=== PATIENT | male | born 2000 | race Caucasian/White ===

== ENCOUNTER 2021-10-05 20:44 | Emergency (ER) | payer OTHER, SELFPAY ==
[2021-10-05 20:51] VITALS: BP 121/78; PULSE 79; RESP 16; TEMP 36.1; O2SAT 100; BMI 28.1
--- NOTE | 2021-10-05 21:05 | ED.URI ---
HPI - URI/Sore Throat General Date Seen: 10/05/21 Chief Complaint: Sore Throat Stated Complaint: Sore Throat/Cough Time Seen by Provider: 10/05/21 20:46 Source: patient Mode of arrival: ambulatory Limitations: no limitations History of Present Illness HPI Narrative: Patient is seen Clint student from [place], who presents here with a 2-3 day history of sore throat, he has been using some [id number] medications tonight, and tonight had a retching episode where he was coughing, retch, and then retched up a little bit of blood, this caused him some discomfort, and worry and he presented here to the ER to be seen. He is otherwise eating and drinking normally, reports to me that he has no fevers, little bit of runny nose, congestion, and maybe a little bit of a cough. Denies any chest pain any shortness of breath, abdominal discomfort, pain dysuria frequency or diarrhea or change in his bowel habits. Denies a rash, is currently on no other medications, no history of hospitalizations or surgeries. MD elicited complaint: sore throat Onset (ago): day(s) Severity: mild Able to tolerate fluids by mouth: Yes Exacerbating factors: swallowing Associated symptoms: denies other symptoms, cough and vomiting Treatments prior to arrival: acetaminophen and cold medicine Related Data Home Medications Medication Instructions Recorded Confirmed No Known Home Medications 10/05/21 10/05/21 Allergies Allergy/AdvReac Type Severity Reaction Status Date / Time No Known Drug Allergies Allergy Verified 10/05/21 20:55 Review of Systems Status of ROS: Reports: 10 or more systems reviewed and unremarkable except as noted in History and below [facility] Medical History (Updated 10/05/21 @ 22:28 by Alejandro Kiran MD) No significant past medical history Surgical History (Updated 10/05/21 @ 21:47 by Mitch Yen RN) No significant past surgical history Social History Smoking Status: Current every day smoker What tobacco products do you use: cigarettes Do you use any of these nicotine containing products: None Second hand tobacco smoke exposure: Yes How often do you have a drink containing alcohol: never How often do you have six or more drinks on one occasion: Never AUDIT-C Alcohol total score: 0 Non-prescribed substance use: denies use Exam Const: Vital Signs, click to edit/add: Vital Signs - 24 hr 10/05/21 20:51 Temperature 97.0 F L Pulse Rate [Right Pulse Oximeter] 79 Respiratory Rate 16 Blood Pressure [Ri ght Upper Arm] 121/78 Pulse Oximetry 100 Oxygen Delivery Me thod Room Air Documenting provider has reviewed patient's vital signs: yes Common normals: no apparent distress, average body habitus, oriented x3, no limitations, healthy appearing, alert and well nourished HENMT: Common normals: normocephalic, head/scalp atraumatic, hearing grossly normal bilaterally, external ears normal, EAC's normal, TM's normal bilaterally, external nose normal, nasal mucous membranes and turbinates normal and moist oral mucous membranes Head and scalp: normal to inspection, normocephalic and atraumatic Face and sinus: normal facial exam Nose: external nose normal and nasal mucous membranes and turbinates normal External ear: external ears normal External auditory canal: EAC's normal Tympanic membrane: TM's normal bilaterally Throat: uvula midline and posterior oropharynx abnormal erythema Other: Right tonsil is bigger than the left, but there is no deviation of the uvula, with no uvular swelling noted. There is redness however, no petechiae noted, I do not see any acute active bleeding, or any exudates. Eye: Common normals: PERRL, EOMs intact bilaterally and no scleral icterus Pupil: PERRL Neck & C-Spine: Common normals: full ROM, no lymphadenopathy, supple, no meningeal signs and no JVD Lymph: Lymphatic: no lymphadenopathy noted Chest: Common normals: inspection of chest normal Resp: Common normals: normal respiratory effort, no retractions, no use of accessory muscles, clear to auscultation bilaterally and percussion normal Effort & inspection: able to speak in complete sentences Auscultation: clear to auscultation bilaterally Percussion: percussion normal Cardio: Common normals: no JVD, regular rate, regular rhythm, S1 normal heart sound, S2 normal heart sound, no gallops, no clicks, no murmurs, no rub and peripheral pulses 2+ throughout Rate: regular rate Rhythm: regular rhythm Heart sounds: S1 normal and S2 normal Peripheral pulses: pulses 2+ throughout GI: Common normals: Normal to inspection, nondistended, normoactive bowel sounds present, soft to palpation, non-tender, no hepatosplenomegaly and no masses Palpation: soft and no hepatosplenomegaly : Common normals: no CVA tenderness Bladder/kidney exam: no CVA tenderness Back & Pelvis: Common normals: no CVA tenderness Extremity: Common normals: normal to inspection Neuro: Common normals: oriented x3 Sensorium/orientation: alert Meningeal signs: no meningeal signs Course Course Hospital Course: Strep throat test is negative COVID still pending, patient is asked numerous times to leave, I do think this is unreasonable, given his state of stability. Will have the nurse call him if the test is positive, Vital Signs Vital signs: Initial Vital Signs Respiratory Effort Spontaneous 10/05/21 20:45 Respiratory Depth Normal 10/05/21 20:45 Respiratory Pattern 10/05/21 20:45 Vital Signs Temperature 97.0 F L 10/05/21 20:51 Pulse Rate 79 10/05/21 20:51 Respiratory Rate 16 10/05/21 20:51 Blood Pressure 121/78 10/05/21 20:51 Pulse Oximetry 100 10/05/21 20:51 Oxygen Delivery Method 10/05/21 20:51 Temperature 97.0 F L 10/05/21 20:51 Pulse Rate 79 10/05/21 20:51 Respiratory Rate 16 10/05/21 20:51 Blood Pressure 121/78 10/05/21 20:51 Pulse Oximetry 100 10/05/21 20:51 Oxygen Delivery Method 10/05/21 20:51 MDM - URI/Sore Throat MDM Narrative Medical decision making narrative: Patient is seen and assessed I did consider multiple diagnosis including epiglottitis, retropharyngeal abscess, peritonsillar abscess, strep throat, viral illness with pharyngitis, food impaction, foreign body in esophagus/retropharynx, and other possibilities. Differential Diagnosis Differential diagnosis: Likely upper respiratory infection, croup, otitis media, sinusitis, viral infection and pharyngitis Lab Data Labs: Lab Results 10/05/21 Range/Units 21:22 Group A Strep DNA NOT DETECTED (No Detected) Discharge Plan Discharge Clinical Impression: Pharyngitis Patient Disposition: Home w/ Parent or Adult Condition: Stable Instructions: Pharyngitis (ED) Additional Instructions: Home, rest, use of Tylenol and or ibuprofen for the discomfort, you may use also some Chloraseptic spray which is also [id number], cold fluids is also helpful, your laboratory tests were negative, this is reassuring, increasing swelling, fevers chills or inability to swell you need to come back and be seen. Nurse will call you with the results of the COVID. Prescriptions: No Action No Known Home Medications Follow Up/Referrals: Provider,Not a Local [Primary Care Provider] - Stand Alone Forms: [employer] Info Instructions
[2021-10-05 22:09] LABS: Strep A DNA Probe* NOT DETECTED (No Detected)
[2021-10-05 22:35] VITALS: BP 121/75; PULSE 74; RESP 16; TEMP 36.1; O2SAT 100
[2021-10-05 22:39] LABS: SARS PCR* Negative SARS-CoV-2 (Negative)
[2021-10-05 23:05] VITALS: BP 121/75; PULSE 74; RESP 16; TEMP 36.1
[2021-10-06] VITALS: BP 121/75; PULSE 74; RESP 16; TEMP 36.1; O2SAT 100
== END 2021-10-05 22:40 | disposition home or self-care (01) ==
PROVIDERS: Emergency Provider Family Medicine
DX: J02.9 Acute pharyngitis, unspecified (principal)
CPT/HCPCS: 87635; 87651; 99283